=== PATIENT | male | born 1985 | race African-American/Black ===

== ENCOUNTER 2025-01-23 18:02 | Emergency (ER) | payer SELFPAY ==
[~2025-01-23] VITALS: Ht 182.9 cm; Wt 87.0 kg
[2025-01-23 18:07] VITALS: TEMP 36.7; O2SAT 100
[2025-01-23] MEDS: HYDROCODONE/ACETAMINOPHEN 5/325MG TABLET PO NR (20:00)
[2025-01-23] MEDS: METHOCARBAMOL 500MG TABLET PO NR (20:00)
[2025-01-23] MEDS ORDERED: DICL100G58 TP (22:42)
[2025-01-23] MEDS ORDERED: HYDR-4001 MT (22:42)
[2025-01-23] MEDS ORDERED: LIDO700A30 TP (22:42)
[2025-01-23] MEDS ORDERED: CYCL10TA21 MT (22:49)
[2025-01-23 23:20] VITALS: BP 106/80; PULSE 54; RESP 16; O2SAT 100
[2025-01-23] MEDS: METHOCARBAMOL 500MG TABLET PO ONE (23:20)
[2025-01-23] MEDS: LIDOCAINE 5% PATCH TOP SCH (23:20)
[2025-01-23] MEDS: HYDROCODONE/ACETAMINOPHEN 5/325MG TABLET PO ONE (23:20)
== END 2025-01-23 23:37 | disposition home or self-care (01) ==
LOC: ER 18:02
DX: M25.551 Pain in right hip (principal); Z98.890 Other specified postprocedural states; Z79.899 Other long term (current) drug therapy; Z79.01 Long term (current) use of anticoagulants
CPT/HCPCS: 72131; 73502; 73700; 93971; 99283; 99284